=== PATIENT | female | born 1990 | race African-American/Black ===

== ENCOUNTER 2016-08-22 13:46 | Emergency (ER) | payer MEDICAID, OTHER ==
[~2016-08-22] VITALS: Ht 160 cm; Wt 53.0 kg
[2016-08-22 14:08] VITALS: BP 100/62
== END 2016-08-22 15:36 | disposition left against medical advice (07) ==
LOC: ER 15:26
DX: M79.645 Pain in left finger(s) (principal); F17.200 Nicotine dependence, unspecified, uncomplicated
CPT/HCPCS: 81025; 99282

== ENCOUNTER 2016-12-20 08:49 | Emergency (ER) | payer SELFPAY ==
[~2016-12-20] VITALS: Ht 167.6 cm; Wt 60.0 kg
[2016-12-20] MEDS ORDERED: ACETAMINOPHEN 325MG TABLET PO ONE (10:30)
[2016-12-20 10:32] LABS: BASOPHILS % 0.4 % (0.0-2.0); EOSINOPHILS % 4.9 % (0.0-5.0); HEMATOCRIT. 33.6 % (36.0-48.0); HEMOGLOBIN. 11.4 g/dL (12.0-16.0); LYMPHOCYTES % 15.3 % (20.0-50.0); MEAN CORPUSCULAR HEMOGLOBIN 31.2 pg (28.0-32.0); MEAN CORPUSCULAR VOLUME 91.8 fL (81.0-99.0); MEAN PLATELET VOLUME 6.7 fl (7.4-10.4); MONOCYTES % 7.3 % (2.0-8.0); NEUTROPHILS % 72.1 % (40.0-76.0); PLATELET 232 x1000/uL (130-400); RED BLOOD CELL COUNT 3.66 mill/uL (4.2-5.4); RED CELL DISTRIBUTION WIDTH 13.1 % (11.6-14.6)
[2016-12-20 10:47] LABS: CLARITY URINE CLEAR (CLEAR); COLOR URINE YELLOW (YELLOW); GLUCOSE URINE NEGATIVE (NEGATIVE); KETONES URINE NEGATIVE (NEGATIVE); LEUKOCYTE ESTERASE URINE TRACE (NEGATIVE); NITRITE URINE NEGATIVE (NEGATIVE); OCCULT BLOOD URINE NEGATIVE (NEGATIVE); PROTEIN URINE NEGATIVE (NEGATIVE); SPECIFIC GRAVITY URINE 1.016 (1.005-1.030)
[2016-12-20 10:56] LABS: CARBON DIOXIDE 24 mEq/L (21-32); CHLORIDE 107 mEq/L (98-107)
[2016-12-20 11:06] LABS: B-HCG QUANTITATIVE 16407 mIU/mL (<3)
[2016-12-20 13:17] VITALS: BP 104/58
== END 2016-12-20 13:21 | disposition home or self-care (01) ==
LOC: ER 09:13
DX: O26.892 Other specified pregnancy related conditions, second trimester (principal); O23.42 Unspecified infection of urinary tract in pregnancy, second trimester; R10.9 Unspecified abdominal pain; Z3A.19 19 weeks gestation of pregnancy; J45.909 Unspecified asthma, uncomplicated
CPT/HCPCS: 36415; 76805; 80053; 81001; 81025; 84702; 85025; 86850; 86900; 86901; 99285; Z7610

== ENCOUNTER 2018-10-26 11:50 | Emergency (ER) | payer MEDICAID ==
[~2018-10-26] VITALS: Ht 167.6 cm; Wt 55.0 kg
[~2018-10-26 11:50] MED LIST: METR250T PO; PNV1TABL76 PO
[2018-10-26 12:44] VITALS: BP 126/76
== END 2018-10-26 13:48 | disposition home or self-care (01) ==
LOC: ER 13:19
DX: S80.862A Insect bite (nonvenomous), left lower leg, initial encounter (principal); S80.861A Insect bite (nonvenomous), right lower leg, initial encounter; L03.116 Cellulitis of left lower limb; L03.115 Cellulitis of right lower limb; J45.909 Unspecified asthma, uncomplicated; W57.XXXA Bitten or stung by nonvenomous insect and other nonvenomous arthropods, initial encounter; Y93.9 Activity, unspecified; Y92.9 Unspecified place or not applicable
CPT/HCPCS: 99282

== ENCOUNTER 2024-12-11 09:35 | Emergency (ER) | payer MEDICAID ==
[~2024-12-11] VITALS: Ht 167.6 cm; Wt 66.0 kg
[2024-12-11 09:50] VITALS: O2SAT 100
[2024-12-11] MEDS ORDERED: ACET-2708 MT (10:31)
[2024-12-11 10:43] VITALS: BP 110/68; PULSE 87; RESP 16; TEMP 36.7; O2SAT 100
== END 2024-12-11 10:46 | disposition home or self-care (01) ==
LOC: ER 09:35
DX: M79.644 Pain in right finger(s) (principal); J45.909 Unspecified asthma, uncomplicated
CPT/HCPCS: 29130; 73120; 99283